=== PATIENT | female | born 1985 | race Caucasian/White ===

== ENCOUNTER → 2016-06-28 | Outpatient (CLI) | payer OTHER ==
--- NOTE | 2016-06-29 06:19 | XR ---
EXAMINATION TYPE: XR foot complete LT DATE OF EXAM: 06/28/2016 5:53 PM CLINICAL HISTORY: Left foot pain worse in third and fourth toes. TECHNIQUE: Frontal, lateral, and oblique images of the left foot are obtained. COMPARISON: None FINDINGS: There is no acute fracture/dislocation evident in the left foot. There is flexion in secon d through fifth toes. There is varus positioning distal third through fifth toes. Vital's toe is pre sent. The overlying soft tissue appears unremarkable. IMPRESSION: There is flexion or hammertoe type deformity second through fifth toes. Vital's toe not ed. There is varus positioning laterally seen.
== END | disposition home or self-care (01) ==
LOC: RADXRMAIN 17:43
PROVIDERS: ATTEND Orthopaedic Surgery
DX: M20.42 Other hammer toe(s) (acquired), left foot (principal); M21.172 Varus deformity, not elsewhere classified, left ankle; M20.62 Acquired deformities of toe(s), unspecified, left foot